=== PATIENT | male | born 1970 | race African-American/Black ===

== ENCOUNTER → 2021-07-30 | Outpatient (CLI) | payer OTHER ==
[~2021-07-30] MED LIST: IBUPROFEN 200200 M1 PO; NOHOMEMEDICATIONS
== END ==
LOC: CAT 14:05
PROVIDERS: ATTEND Family Medicine
DX: Z13.6 Encounter for screening for cardiovascular disorders (principal); E78.00 Pure hypercholesterolemia, unspecified; I25.10 Atherosclerotic heart disease of native coronary artery without angina pectoris